=== PATIENT | female | born 1955 | race Caucasian/White ===

== ENCOUNTER → 2016-05-08 | Outpatient (CLI) | payer BC ==
[~2016-05-08] MED LIST: BACTRIM D.S. TAB1 EA PO; CELECOXIB200 MG PO; CLEMASTINE FU2.68 MG PO; HYDROCODON-ACE1 EAC2 PO; LASIX40 MG PO; LIBRAX PO; LIBRIUM CAP 1010 MG PO; LIDODERM PATCH 51 EA EXT; LOPRESSOR 50 MG50 MG PO; NORVASC 5 MG TAB5 MG PO; PANTOPRAZOLE SO40 MG PO; PROTONIX40 MG PO; ZANAFLEX 4 MG TA4 MG PO
== END ==
LOC: RAD 09:58
DX: M54.5 Low back pain (principal); M54.89 Other dorsalgia; M54.2 Cervicalgia; M47.816 Spondylosis without myelopathy or radiculopathy, lumbar region; M43.26 Fusion of spine, lumbar region; Z98.890 Other specified postprocedural states; Z88.1 Allergy status to other antibiotic agents; Z91.041 Radiographic dye allergy status; Z91.013 Allergy to seafood; Z88.5 Allergy status to narcotic agent; Z88.0 Allergy status to penicillin
CPT/HCPCS: 72072; 72110

== ENCOUNTER → 2016-06-24 | Outpatient (CLI) | payer BC | LOC: RAD 12:48 | DX: M13.862 Other specified arthritis, left knee (principal); M25.862 Other specified joint disorders, left knee | CPT/HCPCS: 73564 ==

== ENCOUNTER 2016-06-26 05:35 | Emergency (ER) | payer BC ==
[2016-06-26 07:31] LABS: HEMOGLOBIN 14.3 gm/dl (12.3-15.3); RED BLOOD COUNT 4.89 M/UL (4.00-5.10); WHITE BLOOD COUNT 8.3 K/UL (4.5-11.0)
[2016-06-26 08:03] LABS: BUN/CREATININE RATIO 16 (0-10)
== END 2016-06-26 10:40 | disposition home or self-care (01) ==
LOC: ER1 05:35
PROVIDERS: Physician Assistant
DX: N13.2 Hydronephrosis with renal and ureteral calculous obstruction (principal); N30.91 Cystitis, unspecified with hematuria; I10 Essential (primary) hypertension; Z88.0 Allergy status to penicillin; Z88.1 Allergy status to other antibiotic agents; Z88.5 Allergy status to narcotic agent; Z79.899 Other long term (current) drug therapy
CPT/HCPCS: 36415; 80053; 81001; 85025; 87086; 96374; 96375; 99284; J1885; J2270; J2405

== ENCOUNTER 2020-10-22 11:39 | Emergency (ER) | payer MEDICARE, BC ==
[~2020-10-22 11:39] MED LIST changes: +BACTRIM DS TAB1 EACH PO; +DIFLUCAN150 MG PO; +PYRIDIUM200 MG PO
[2020-10-22 12:44] LABS: RED BLOOD COUNT 4.74 M/UL (4.00-5.10); WHITE BLOOD COUNT 8.1 K/UL (4.5-11.0)
[2020-10-22 13:10] LABS: BUN/CREATININE RATIO 15 (0-10)
[2020-10-22] MEDS ORDERED: MUCINEX600 MG PO (14:08)
[2020-10-22] MEDS ORDERED: ZOFRAN ODT 4 MG4 MG SL (14:08)
[2020-10-22] MEDS ORDERED: TESSALON PERLE100 MG PO (14:09)
== END 2020-10-22 14:48 | disposition home or self-care (01) ==
LOC: ER1 11:39
PROVIDERS: Emergency Medicine
DX: R05 Cough (principal); R11.2 Nausea with vomiting, unspecified; R19.7 Diarrhea, unspecified; J45.909 Unspecified asthma, uncomplicated; I10 Essential (primary) hypertension; Z20.822 Contact with and (suspected) exposure to COVID-19
CPT/HCPCS: 71045; 80053; 81001; 82550; 82553; 83605; 83690; 83735; 83874; 84484; 85025; 87081; 87880; 93005; 96374; 96375; 96376; 99285; J1100; J2405; J7040; U0002

== ENCOUNTER → 2020-12-28 | Outpatient (CLI) | payer MEDICARE, BC ==
[~2020-12-28] MED LIST changes: +MUCINEX600 MG PO; +TESSALON PERLE100 MG PO; +ZOFRAN ODT 4 MG4 MG SL
== END ==
LOC: RAD 11:57
DX: M13.132 Monoarthritis, not elsewhere classified, left wrist (principal); M13.811 Other specified arthritis, right shoulder
CPT/HCPCS: 73030; 73110

== ENCOUNTER → 2021-09-04 | Outpatient (CLI) | payer MEDICARE, BC | LOC: KOH-I 14:33 | DX: M79.662 Pain in left lower leg (principal); M79.661 Pain in right lower leg | CPT/HCPCS: 93925 ==